=== PATIENT | male | born 1945 | race Caucasian/White ===

== ENCOUNTER 2021-08-20 23:01 | Observation (INO) ==
[2021-08-21] MEDS ORDERED: Perflutren Lipid Microsphere 1.3 ML in 0.9 % Sodium Chloride 8.7 ML IVP PRN (02:10)
[2021-08-21] MEDS ORDERED: *HR* Heparin 5,000 UNIT/ML VIAL IVP PRN ×2 (02:13)
[2021-08-21] MEDS ORDERED: Heparin 25,000UNIT/250ML 1/2NS 25,000 UNIT/250 ML IV.SOLN IVC SCH (02:15)
[2021-08-21] MEDS ORDERED: Acetaminophen 325 MG TABLET PO PRN (02:59)
[2021-08-21] MEDS ORDERED: Ondansetron 4 MG/2 ML VIAL IVP PRN (02:59)
[2021-08-21] MEDS ORDERED: Naloxone 0.4 MG/ML INJ IVP PRN (02:59)
[2021-08-21 03:36] LABS: Prothrombin Time 10.6 Seconds (9.4-12.1)
[2021-08-21 03:38] LABS: Activated Partial Thrombo Time 42.3 Seconds (26.0-36.0); Chol/HDL Ratio 4.7 (0-4.9)
[2021-08-21 03:42] LABS: Bacteria,Urine Many per hpf (None-Few); Bilirubin,Urine Negative (Negative); Blood,Urine Negative (Negative); Clarity,Urine Clear (Clear); Color,Urine Light-Yellow (Yellow); Glucose,Urine (UA) Normal (Normal); Ketones,Urine Negative (Negative); Leukocyte Esterase,Urine Large (Negative); Mucus,Urine Moderate per lpf (None-Few); Nitrite,Urine Negative (Negative); Protein,Urine Trace mg/dL (Neg-Trace); RBC,Urine 0-3 per hpf (0-3); Specific Gravity,Urine 1.026 (1.010-1.025); Urobilinogen,Urine Normal (Normal); WBC,Urine 50-100 per hpf (0-3)
[2021-08-21] MEDS: Famotidine 20 MG/2 ML VIAL IVP SCH ×2 (03:44→16:31)
[2021-08-21 03:53] LABS: Thyroid Stimulating Hormone 1.767 mcIU/mL (0.340-5.600)
[2021-08-21 04:03] LABS: Folate 16.6 ng/mL (3.0-16.0)
[2021-08-21 04:04] LABS: Estimated Average Glucose 128 mg/dl; Hemoglobin A1C 6.1 %
[2021-08-21 04:33] LABS: Basophils # 0.1 K/mcL (0.0-0.2); Basophils % 0.6 %; Eosinophils # 0.3 K/mcL (0.0-0.6); Eosinophils % 3.9 %; Hematocrit 43.4 % (37.5-50.1); Hemoglobin 14.1 g/dL (12.9-16.9); Immature Granulocytes % 0.6 % (0-4); Lymphocytes # 2.8 K/mcL (0.6-4.6); Lymphocytes % 35.7 %; Mean Corpuscular HGB Conc 32.5 g/dL (31.6-35.5); Mean Corpuscular Hemoglobin 30.9 pg (28.0-33.3); Mean Corpuscular Volume 95.2 fL (83.0-100.0); Mean Platelet Volume 10.1 fL (9.4-12.4); Monocytes # 1.1 K/mcL (0.0-1.3); Monocytes % 13.5 %; Neutrophils # 3.5 K/mcL (1.6-8.9); Platelet Count 237 K/mcL (140-400); Red Blood Count 4.56 M/mcL (4.19-5.50); Red Cell Distribution Width 12.8 % (11.5-14.5); Segmented Neutrophils % 45.7 %; White Blood Count 7.8 K/mcL (4.3-11.1)
[2021-08-21] MEDS ORDERED: lisinopriL 20 MG TABLET PO SCH (09:00)
[2021-08-21] MEDS ORDERED: Aspirin Enteric Coated 81 MG Tablet PO SCH (09:00)
[2021-08-21 09:18] LABS: BUN/Creatinine Ratio 17 (6-26); Blood Urea Nitrogen 19 mg/dL (8-23); Calcium 9.6 mg/dL (8.6-10.3); Carbon Dioxide 26 mEq/L (23-29); Chloride 108 mEq/L (98-107); Glucose 102 mg/dL (70-105); Osmolality,Calculated 290 (280-300); Potassium 4.5 mEq/L (3.5-5.1); Sodium 139 mEq/L (136-145); eGFR For African Americans > 60 (> 60); eGFR For Non-African Americans > 60 (> 60)
[2021-08-21] MEDS ORDERED: *HR* Heparin 10,000 UNIT/10 ML VIAL ONE ×2 (13:54→14:51)
[2021-08-21] MEDS ORDERED: ISOVUE-370 200 ML INFUS..BTL ONE (13:55)
[2021-08-21] MEDS ORDERED: 0.9 % Sodium Chloride 2,000 ML ONE (13:55)
[2021-08-21] MEDS ORDERED: Nitroglycerin 1,000 MCG/5 ML VIAL IV ONE (13:55)
[2021-08-21] MEDS ORDERED: Heparin 1,000 UNITS/500 mL 500 ML ONE (13:55)
[2021-08-21] MEDS ORDERED: *HR* Midazolam HCl 2 MG/2 ML VIAL ONE (14:02)
[2021-08-21] MEDS ORDERED: *HR* FentaNYL (PF) 100 MCG/2 ML VIAL ONE (14:02)
[2021-08-21] MEDS ORDERED: *HR* Ticagrelor 90 MG TABLET ONE (14:54)
[2021-08-21] MEDS ORDERED: Tirofiban 12.5 MG/250ML 12.5 MG/250 ML BAG ONE (15:06)
[2021-08-21] MEDS: *HR* Ticagrelor 90 MG TABLET PO SCH (20:38)
[2021-08-21] MEDS ORDERED: Melatonin 3 MG TABLET PO PRN (21:35)
[2021-08-22] MEDS: Famotidine 20 MG/2 ML VIAL IVP SCH (03:22)
[2021-08-22] MEDS: *HR* Ticagrelor 90 MG TABLET PO SCH (08:07)
[2021-08-22] MEDS ORDERED: Perflutren Lipid Microsphere 1.3 ML in 0.9 % Sodium Chloride 8.7 ML IVP PRN (08:42)
[2021-08-22] MEDS ORDERED: lisinopriL 20 MG TABLET PO SCH (09:00)
[2021-08-22] MEDS ORDERED: Aspirin Enteric Coated 81 MG Tablet PO SCH (09:00)
[2021-08-22] MEDS ORDERED: Multivit/Ca/Min/Fe/FA 1 TAB TABLET PO SCH (09:00)
[2021-08-22 10:51] LABS: Hematocrit 45.4 % (37.5-50.1); Hemoglobin 14.8 g/dL (12.9-16.9); Mean Corpuscular HGB Conc 32.6 g/dL (31.6-35.5); Mean Corpuscular Hemoglobin 30.8 pg (28.0-33.3); Mean Corpuscular Volume 94.4 fL (83.0-100.0); Mean Platelet Volume 9.8 fL (9.4-12.4); Platelet Count 241 K/mcL (140-400); Red Blood Count 4.81 M/mcL (4.19-5.50); Red Cell Distribution Width 12.6 % (11.5-14.5); White Blood Count 8.1 K/mcL (4.3-11.1)
[2021-08-22 11:10] LABS: BUN/Creatinine Ratio 14 (6-26); Blood Urea Nitrogen 18 mg/dL (8-23); Calcium 9.7 mg/dL (8.6-10.3); Carbon Dioxide 24 mEq/L (23-29); Chloride 105 mEq/L (98-107); Glucose 121 mg/dL (70-105); Osmolality,Calculated 283 (280-300); Potassium 4.3 mEq/L (3.5-5.1); Sodium 135 mEq/L (136-145); eGFR For African Americans > 60 (> 60); eGFR For Non-African Americans 54 (> 60)
[2021-08-22 11:48] VITALS: BP 128/74; PULSE 77; TEMP 98.2; O2SAT 97
== END 2021-08-22 13:05 | disposition home or self-care (01) ==
LOC: 3NENU
PROVIDERS: ADMIT Internal Medicine; ATTEND Internal Medicine